=== PATIENT | female | born 1980 | race Caucasian/White ===

== ENCOUNTER → 2017-11-11 | Outpatient (CLI) | payer OTHER ==
[~2017-11-11] MED LIST: ALBU90OI INH; CLAR250 PO; DICY20 PO; ESOM20 PO; FAMO20 PO; HYDACE5 PO; HYDGUAL120 PO; OXYACE5T PO; TRAZ50 PO; TRIM250 PO; VENL75ER; [UNRECOGNIZED DRUG - OTHER]
[2017-11-12 11:12] LABS: HPV Genotype 16 Not Detected (NOTDET); HPV Genotype 18 Not Detected (NOTDET)
[2017-11-19 14:54] LABS: HPV High Risk Other Not Detected (NOTDET)
== END | disposition home or self-care (01) ==
LOC: LAB 12:33
PROVIDERS: Obstetrics & Gynecology
DX: Z01.419 Encounter for gynecological examination (general) (routine) without abnormal findings (principal)
CPT/HCPCS: 87624; G0123

== ENCOUNTER 2019-05-22 12:58 | Day surgery (SDC) | payer OTHER ==
[~2019-05-22] VITALS: Ht 175.3 cm; Wt 89.2 kg
[~2019-05-22 12:58] MED LIST changes: +CELE100 PO; +Diclofenac Pota50 MG PO; +OMEP20ER PO; +VENL150ER PO
--- NOTE | 2019-05-22 16:03 | NUR ---
05/22/19 1603 Lilia Nelson PT WITH FAMILY AT BEDSIDE. VSS. REPORT TO CARMELA KUNZ TO ASSUME CARE OF PT. PT STABLE.
== END 2019-05-22 16:42 | disposition home or self-care (01) ==
LOC: ORSCSDS 12:58
PROVIDERS: Podiatrist Foot & Ankle Surgery
PROC: 0LQW0ZZ Repair Left Foot Tendon, Open Approach (ICD-10-PCS; principal; 2019-05-22 14:45)
DX: M65.872 Other synovitis and tenosynovitis, left ankle and foot (principal); S96.812A Strain of other specified muscles and tendons at ankle and foot level, left foot, initial encounter; E78.5 Hyperlipidemia, unspecified; K21.9 Gastro-esophageal reflux disease without esophagitis; Z79.899 Other long term (current) drug therapy
CPT/HCPCS: J0690; J1100; J1885; J2250; J2405; J2704; J3010; J7120